=== PATIENT | male | born 1970 | race Caucasian/White ===

== ENCOUNTER 2024-11-16 22:07 | Emergency (ER) | payer OTHER ==
[~2024-11-16] VITALS: Ht 188 cm; Wt 95.0 kg
[2024-11-16] MEDS ORDERED: diazePAM 10 MG/2 ML SYR IM ONE (22:45)
[2024-11-16] MEDS ORDERED: KETOROLAC TROMETHAMINE 60 MG/2 ML VIAL IM ONE (22:45)
[2024-11-16] MEDS ORDERED: TRAMADOL HCL50 MG PO (23:33)
[2024-11-16] MEDS ORDERED: TRAMADOL HCL 50 MG HOME.PACK PO ONE (23:45)
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
[2024-11-17 00:19] VITALS: BP 162/97
== END 2024-11-17 00:22 | disposition home or self-care (01) ==
LOC: ED 22:07
DX: M16.0 Bilateral primary osteoarthritis of hip (principal)
CPT/HCPCS: 72170; 96372; 99284-25; A9270; J1885; J3360